=== PATIENT | male | born 1970 | race Asian ===

== ENCOUNTER 2020-05-30 12:55 | Outpatient (CLI) | payer OTHER | END 2020-05-30 21:56 | disposition home or self-care (01) | LOC: INF 12:55 | PROVIDERS: ATTEND Internal Medicine Endocrinology, Diabetes & Metabolism | DX: Z23 Encounter for immunization (principal) | CPT/HCPCS: 96372 ==

== ENCOUNTER 2020-06-27 08:45 | Outpatient (CLI) | payer OTHER | END 2020-06-27 23:07 | disposition home or self-care (01) | LOC: INF 08:45 | PROVIDERS: ATTEND Internal Medicine Endocrinology, Diabetes & Metabolism | DX: Z23 Encounter for immunization (principal) | CPT/HCPCS: 96372 ==

== ENCOUNTER 2021-05-03 15:24 | Outpatient (CLI) | payer OTHER | END 2021-05-03 19:29 | disposition home or self-care (01) | LOC: INF 15:24 | PROVIDERS: ATTEND Internal Medicine Endocrinology, Diabetes & Metabolism | DX: Z23 Encounter for immunization (principal) | CPT/HCPCS: 0064A ==